=== PATIENT | male | born 1950 | race Two or more races ===

== ENCOUNTER → 2019-02-01 | Outpatient (CLI) | payer MEDICARE ==
[2019-02-01 13:50] LABS: Basophils # (auto) 0.1 uL; Basophils % (auto) 0.7 % (0.0-2.0); Eosinophils # (auto) 0.1 uL; Eosinophils % (auto) 1.3 % (0.0-7.0); Hematocrit 41.6 % (41.0-53.0); Hemoglobin 14.3 g/dL (13.5-17.5); Lymphocytes # (auto) 2.3 uL; Lymphocytes % (auto) 25.4 % (10.0-50.0); Mean Corpuscular Hemoglobin 31.5 pg (28.0-32.0); Mean Corpuscular Hgb Conc. 34.4 g/dL (32.0-36.0); Mean Corpuscular Volume 91.5 fL (80.0-100.0); Monocytes # (auto) 0.4 uL; Neutrophils # (auto) 6.1 uL; Neutrophils % (auto) 68.6 % (37.0-80.0); Platelet Count (auto) 268 10^3/uL (140-450); Red Blood Cells 4.54 10^6/uL (4.5-5.90); Red Cell Distribution Width 13.6 % (11.8-14.3); White Blood Cell 8.8 10^3/uL (4.4-10.8)
[2019-02-01 13:56] LABS: Urine Bacteria NONE SEEN /hpf (None Seen); Urine Blood Negative /uL (Negative); Urine Specific Gravity 1.006 (1.001-1.035); Urine WBC <1 /hpf (0 - 3)
[2019-02-01 16:48] LABS: Cholesterol 142 mg/dL (< 200); HDL Cholesterol 40 mg/dL (40-59); LDL Cholesterol 79 mg/dL (< 100); Triglycerides 178 mg/dL (< 150)
== END | disposition home or self-care (01) ==
LOC: LAB 13:30
PROVIDERS: ATTEND Internal Medicine
DX: E11.9 Type 2 diabetes mellitus without complications (principal); E78.5 Hyperlipidemia, unspecified; I10 Essential (primary) hypertension
CPT/HCPCS: 36415; 80061; 81001; 82043; 85025

== ENCOUNTER → 2019-03-01 | Outpatient (CLI) | payer OTHER | END | disposition home or self-care (01) | LOC: LAB 16:17 | PROVIDERS: ATTEND Internal Medicine | DX: M84.9 Disorder of continuity of bone, unspecified (principal); E11.9 Type 2 diabetes mellitus without complications | CPT/HCPCS: 87205 ==

== ENCOUNTER → 2019-03-29 | Outpatient (CLI) | payer OTHER | END | disposition home or self-care (01) | LOC: LAB 10:56 | PROVIDERS: ATTEND Internal Medicine | DX: Z12.11 Encounter for screening for malignant neoplasm of colon (principal); Z12.5 Encounter for screening for malignant neoplasm of prostate | CPT/HCPCS: 84153 ==

== ENCOUNTER → 2019-04-07 | Outpatient (CLI) | payer OTHER | END | disposition home or self-care (01) | LOC: LAB 09:50 | PROVIDERS: ATTEND Internal Medicine | DX: Z12.11 Encounter for screening for malignant neoplasm of colon (principal); Z12.5 Encounter for screening for malignant neoplasm of prostate | CPT/HCPCS: 82270 ==

== ENCOUNTER 2019-04-13 11:20 | Emergency (ER) | payer MEDICARE, OTHER ==
[~2019-04-13] VITALS: Ht 157.5 cm; Wt 59.0 kg
[2019-04-13 12:12] LABS: INR 1.01 (0.9-1.15); Partial Thromboplastin Time 26.2 sec (23.64-32.05)
--- NOTE | 2019-04-13 15:01 | NUR ---
Midline Placement: Patient educated on need for midline placement. All risks and benefits explained and all questions and concerns addresses prior to procedure. 18g/10cm midline inserted via Basilic vein using Ultrasound. Sterile technique utilized. Blood return obtained from lumen and flushed easily with NS using proper technique. Midline secured with saline lock; biodisc and occlusive dressing applied. Pt to be discharged home for continuation of home antibiotics as ordered. Midline lot #[id number].
[2019-04-13 15:09] VITALS: BP 133/84
== END 2019-04-13 15:12 | disposition home or self-care (01) ==
LOC: ER 11:20
DX: T81.72XA Complication of vein following a procedure, not elsewhere classified, initial encounter (principal); L08.9 Local infection of the skin and subcutaneous tissue, unspecified; E11.9 Type 2 diabetes mellitus without complications; E78.5 Hyperlipidemia, unspecified; I10 Essential (primary) hypertension; F17.210 Nicotine dependence, cigarettes, uncomplicated; Z45.2 Encounter for adjustment and management of vascular access device
CPT/HCPCS: 36410; 36415; 85610; 85730

== ENCOUNTER → 2019-04-17 | Outpatient (CLI) | payer OTHER | END | disposition home or self-care (01) | LOC: LAB 10:55 | PROVIDERS: ATTEND Internal Medicine | DX: E11.9 Type 2 diabetes mellitus without complications (principal) | CPT/HCPCS: 36415; 83036 ==

== ENCOUNTER → 2019-07-14 | Outpatient (CLI) | payer OTHER ==
[2019-07-14 12:10] LABS: Albumin 3.5 g/dL (3.4-5.0); Calcium 8.9 mg/dL (8.5-10.1); Potassium 4.7 mmol/L (3.5-5.1)
[2019-07-14 12:17] LABS: BUN/Creatinine Ratio 13.7; Bilirubin, Total 0.8 mg/dL (0.2-1.0); Total Protein 7.6 g/dL (6.4-8.2)
== END | disposition home or self-care (01) ==
LOC: LAB 11:01
PROVIDERS: ATTEND Internal Medicine
DX: E11.9 Type 2 diabetes mellitus without complications (principal)
CPT/HCPCS: 36415; 80053; 80061; 83036

== ENCOUNTER → 2019-08-16 | Outpatient (CLI) | payer OTHER | END | disposition home or self-care (01) | LOC: LAB 17:26 | PROVIDERS: ATTEND Internal Medicine | DX: S31.809A Unspecified open wound of unspecified buttock, initial encounter (principal); X58.XXXA Exposure to other specified factors, initial encounter; Y92.89 Other specified places as the place of occurrence of the external cause; Y93.89 Activity, other specified; Y99.8 Other external cause status | CPT/HCPCS: 87205 ==

== ENCOUNTER → 2019-10-02 | Outpatient (CLI) | payer OTHER ==
[2019-10-02 10:18] LABS: Albumin 3.6 g/dL (3.4-5.0); Calcium 8.7 mg/dL (8.5-10.1); Potassium 4.3 mmol/L (3.5-5.1)
[2019-10-02 10:20] LABS: BUN/Creatinine Ratio 15.2; Bilirubin, Total 0.5 mg/dL (0.2-1.0); Total Protein 7.2 g/dL (6.4-8.2)
== END | disposition home or self-care (01) ==
LOC: LAB 09:40
PROVIDERS: ATTEND Internal Medicine
DX: E11.9 Type 2 diabetes mellitus without complications (principal)
CPT/HCPCS: 36415; 80053; 83036

== ENCOUNTER → 2020-06-12 | Day surgery (SDC) | payer OTHER ==
[~2020-06-12] VITALS: Ht 170.2 cm; Wt 81.6 kg
[~2020-06-12] MED LIST: ANGIOMAX 250 MG VIAL IV ONE; ATROPINE SULF 1 MG/10ml SYR IV ONE; ATROPINE SULF 1 MG/10ml SYR ONE; CALCIUM CHLOR(10%) 100MG/ML 10ML SYRINGE IV ONE; DOPamine 1600MCG/ML D5W 250 ML IV SCH; EPINEPHrine HCL 1 MG/10 ML SYRG IV ONE; EPINEPHrine HCL 1 MG/10 ML SYRG ONE; EPINEPHrine HCL 250 ML IV ONE; EPTIFIBATIDE INJ (2MG/ML) 10ML VIAL IV ONE; ETOMIDATE (2MG/ML) 20ML VIAL IV ONE; FLUMAZENIL 0.1 MG/ML INJ 10ML MDV IV ONE; IODIXANOL 320MG/ML 100ML BTL IV ONE; LIDOCAINE 2%HCL (LOCAL ANESTH.) INJ 20ML MDV ONE; MIDAZOLAM DRIP 50 mg/50mL 50 ML IV ONE; MIDAZOLAM HCL 1MG/1ML-2 ML VIAL ONE; NOREPINEPHRINE 8 MG/250ML KIT 250 ML IV ONE; SODIUM BICARBONATE 8.4% INJ 50ML SYRINGE IV ONE; SODIUM BICARBONATE 8.4% INJ 50ML SYRINGE ONE; SODIUM CHL 0.9% 0 ML ONE; SUCCINYLCHOLINE CHLORIDE 20 MG/ML 10ML VIAL IV ONE; fentaNYL CITRATE 100 MCG/2 ML VL ONE
[2020-06-12 07:19] VITALS: BP 128/88
[2020-06-12 08:07] LABS: Albumin 2.5 g/dL (3.4-5.0); Calcium 7.2 mg/dL (8.5-10.1); Potassium 3.4 mmol/L (3.5-5.1)
[2020-06-12 08:09] LABS: INR 1.03 (0.9-1.15); Partial Thromboplastin Time 26.3 sec (23.0-31.2)
[2020-06-12 08:14] LABS: BUN/Creatinine Ratio 15.1; Bilirubin, Total 0.5 mg/dL (0.2-1.0); Total Protein 5.1 g/dL (6.4-8.2)
== END | disposition home or self-care (01) ==
LOC: EDUNIT# 06:06 → ER 06:16 → EDBD 06:16 → CATH 06:31
PROVIDERS: ATTEND Specialist
DX: R07.89 Other chest pain (principal); I46.9 Cardiac arrest, cause unspecified; I25.2 Old myocardial infarction
CPT/HCPCS: 36415; 71045; 80053; 84484; 85610; 85730; 92950; 93005; 99291; J0171; J0330; J1644; J2250; Q9967